=== PATIENT | male | born 1945 | race Caucasian/White ===

== ENCOUNTER 2017-07-10 08:55 | Day surgery (SDC) | payer BC ==
[~2017-07-10] VITALS: Ht 172.7 cm; Wt 81.6 kg
[2017-07-10] MEDS ORDERED: LIDOCAINE HCL 1% 20ML VIAL (Pyxis) INJ ONE (10:37)
[2017-07-10] MEDS ORDERED: IODIXANOL 320MG/ML 100 ML BOTTLE IV ONE (10:37)
[2017-07-10] MEDS ORDERED: MIDAZOLAM HCL 2 MG/2 ML VIAL ONE (10:41)
[2017-07-10] MEDS ORDERED: FENTANYL CITRATE/PF 50MCG/ML 2ML VIAL ONE (10:41)
[2017-07-10] MEDS ORDERED: HYDRALAZINE 20MG/ML VIAL IV ONE (12:00)
[2017-07-17] MEDS ORDERED: AMLO10TA80 PO (07:59)
[2017-07-17] MEDS ORDERED: ATEN100T PO (07:59)
[2017-07-17] MEDS ORDERED: ASPI-986 PO (07:59)
[2017-07-17] MEDS ORDERED: ROSU40TA PO (07:59)
[2017-07-17] MEDS ORDERED: CLOP75TA16 PO (07:59)
[2017-07-17] MEDS ORDERED: LEVO50TA PO (07:59)
== END 2017-07-10 14:15 | disposition home or self-care (01) ==
LOC: CCL 08:55
PROVIDERS: ATTEND Specialist
DX: I25.10 Atherosclerotic heart disease of native coronary artery without angina pectoris (principal); I10 Essential (primary) hypertension; E03.8 Other specified hypothyroidism; E78.5 Hyperlipidemia, unspecified; Z79.82 Long term (current) use of aspirin; Z98.890 Other specified postprocedural states
CPT/HCPCS: 93454; C1760; C1769; C1887; C1893; J1644; J2250; J3010; J3490; Q9967